=== PATIENT | female | born 1980 | race Caucasian/White ===

== ENCOUNTER 2016-11-13 10:30 | Emergency (ER) | payer OTHER ==
[~2016-11-13] VITALS: Ht 167.6 cm; Wt 90.7 kg
[~2016-11-13 10:30] MED LIST: CIPRO; NOVOLOG
[2016-11-13 12:08] LABS: BASOPHIL % 0.5 % (0-2); PLATELET COUNT 230 x10^3mcL (130-400); RED CELL DISTRIBUTION WIDTH 12.8 % (11.5-14.5)
[2016-11-13 12:24] LABS: ALBUMIN 3.7 g/dL (3.4-5.0); ALKALINE PHOSPHATASE 91 U/L (46-116); ALT/SGPT 19 U/L (14-59); AMYLASE 48 U/L (25-115); AST/SGOT 12 U/L (15-37); BILIRUBIN TOTAL 0.4 mg/dL (0.20-1.00); CARBON DIOXIDE 29.8 mmol/L (21-32); CHLORIDE SERUM 102 mmol/L (98-107); CREATININE SERUM 0.8 mg/dL (0.6-1.0); GFR1 > 60 mL/min; GLUCOSE SERUM 186 mg/dL (74-106); LIPASE 93 IU/L (73-393); SODIUM SERUM 137 mmol/L (136-145); TOTAL PROTEIN, SERUM 7.8 g/dL (6.4-8.2)
[2016-11-13 13:39] VITALS: BP 131/74
== END 2016-11-13 13:40 | disposition home or self-care (01) ==
LOC: ED 10:30
PROVIDERS: Emergency Medicine
DX: K59.00 Constipation, unspecified (principal); R51 Headache; E11.9 Type 2 diabetes mellitus without complications; Z79.4 Long term (current) use of insulin

== ENCOUNTER 2017-05-25 10:59 | Emergency (ER) | payer OTHER ==
[~2017-05-25] VITALS: Ht 167.6 cm; Wt 89.6 kg
[2017-05-25 14:11] LABS: BASOPHIL % 0.4 % (0-2); PLATELET COUNT 227 x10^3mcL (130-400); RED CELL DISTRIBUTION WIDTH 12.4 % (11.5-14.5)
[2017-05-25 14:31] LABS: CALCIUM 8.9 mg/dL (8.5-10.1); CARBON DIOXIDE 30.4 mmol/L (21-32); CHLORIDE SERUM 104 mmol/L (98-107); CREATININE SERUM 0.6 mg/dL (0.6-1.0); GFR1 > 60 mL/min; GLUCOSE SERUM 131 mg/dL (74-106); SODIUM SERUM 141 mmol/L (136-145)
[2017-05-25 14:40] LABS: FREE T4 1.07 ng/dL (0.76-1.46); FREE THYROXINE INDEX 3.3 ug/dL (1.4-4.5); T4(THYROXINE) 9.4 ug/dL (4.7-13.3)
[2017-05-25 14:46] LABS: ALBUMIN 3.6 g/dL (3.4-5.0); ALKALINE PHOSPHATASE 109 U/L (46-116); ALT/SGPT 16 U/L (14-59); AST/SGOT 12 U/L (15-37); BILIRUBIN TOTAL 0.2 mg/dL (0.20-1.00); HDL CHOLESTEROL 51 mg/dL (40-60); LIPASE 105 IU/L (73-393); T3 TOTAL 0.91 ng/mL; TOTAL PROTEIN, SERUM 7.6 g/dL (6.4-8.2); TRIGLYCERIDES 48 mg/dL (<150)
[2017-05-25 14:48] LABS: CHOLESTEROL 201 mg/dL (<200); CHOLESTEROL/HDL RATIO 3.9
[2017-05-25 15:27] VITALS: BP 115/78
== END 2017-05-25 15:27 | disposition home or self-care (01) ==
LOC: ED 10:59
PROVIDERS: Specialist
DX: R07.89 Other chest pain (principal); R00.2 Palpitations; E11.9 Type 2 diabetes mellitus without complications; Z79.4 Long term (current) use of insulin
CPT/HCPCS: 36415; 83880; 84439; Q0092